=== PATIENT | male | born 1955 | race Caucasian/White ===

== ENCOUNTER 2020-03-09 12:17 | Observation (INO) | payer OTHER ==
[2020-03-09 13:17] LABS: Basophils % (A) 0 %; Eosinophils % (A) 0 %; HGB 15.2 gm/dL (13.0-17.5); Lymphocytes # (A) 0.4 k/uL (1.0-4.8); Lymphocytes % (A) 4 %; MCH 31.3 pg (25.0-35.0); MCHC 33.9 g/dL (31.0-37.0); MCV 92.3 fL (80.0-100.0); Monocytes # (A) 0.3 k/uL (0-1.0); Monocytes % (A) 3 %; Neutrophils # (A) 9.2 k/uL (1.3-7.7); Neutrophils % (A) 93 %; Platelet Count 276 k/uL (150-450); RBC 4.87 m/uL (4.30-5.90); RDW 13.2 % (11.5-15.5)
[2020-03-09 13:30] LABS: Albumin 4.6 g/dL (3.5-5.0); Magnesium 2.4 mg/dL (1.6-2.3); Potassium 4.1 mmol/L (3.5-5.1); Total Bilirubin 1.1 mg/dL (0.2-1.3); Total Protein 7.9 g/dL (6.3-8.2)
--- NOTE | 2020-03-09 13:31 | XR ---
EXAMINATION TYPE: XR chest 2V DATE OF EXAM: 03/09/2020 COMPARISON: NONE HISTORY: Shortness of breath TECHNIQUE: Frontal and lateral views of the chest are obtained. FINDINGS: Scattered senescent parenchymal changes noted. Hyperinflation compatible with COPD. No evidence for infiltrate. No evidence for atelectasis. Heart size is stable. Mediastinal structures are stable and grossly unremarkable. No evidence for hilar prominence. Degenerative changes dorsal spine. IMPRESSION: 1. No evidence for acute pulmonary disease.
--- NOTE | 2020-03-09 13:35 | ED ---
Chest Pain HPI - General Chief Complaint: Chest Pain Stated Complaint: Chest pain Time Seen by Provider: 03/09/20 12:17 Source: patient, EMS, RN notes reviewed Mode of arrival: EMS Limitations: no limitations - History of Present Illness Initial Comments: This is a 64-year-old male with a known history of PVCs who is brought in by EMS due to difficulty breathing and chest pain. He had chest pain over the left side of his chest with one to his axilla and also to his midsternal area he states initially was somewhat sharp and pulsating. He was given aspirin as well as nitroglycerin by paramedics and this did help the discomfort. He currently has minimal if any discomfort initially was 5-710. He is of a history of asthma and states he thought initially it was his asthma acting up due to the weather changes. MD Complaint: chest pain - Related Data Home Medications Medication Instructions Recorded Confirmed ALPRAZolam [Xanax] 0.25 mg PO DAILY PRN 03/09/20 03/09/20 Albuterol Sulfate [Ventolin HFA] 2 puff INHALATION RT-Q6H PRN 03/09/20 03/09/20 Cholecalciferol [Vitamin D3 (25 5,000 unit PO DAILY 03/09/20 03/09/20 Mcg = 1000 Iu)] Flecainide Acetate 50 mg PO Q12HR 03/09/20 03/09/20 Fluticasone Propionate [Flonase 1 spray EA NOSTRIL DAILY 03/09/20 03/09/20 Allergy Relief] HYDROcodone/APAP 10-325MG [[place] 1 tab PO TID PRN 03/09/20 03/09/20 10-325] Metoprolol Tartrate [Lopressor] 25 mg PO BID 03/09/20 03/09/20 Mometasone/Formoterol [Dulera 200 2 puff PO RT-DAILY 03/09/20 03/09/20 Mcg-5 Mcg Inhaler] Nabumetone 500 mg PO BID 03/09/20 03/09/20 Omeprazole [PriLOSEC] 20 mg PO DAILY 03/09/20 03/09/20 Pseudoephedrine [Sudafed] 60 mg PO DAILY 03/09/20 03/09/20 Simvastatin [Zocor] 40 mg PO HS 03/09/20 03/09/20 methylPREDNISolone [Medrol Dose See Taper PO DIRECTED 03/09/20 03/09/20 Pack] Allergies Allergy/AdvReac Type Severity Reaction Status Date / Time amoxicillin [From Augmentin] Allergy Unknown Verified 03/09/20 13:28 cephalexin [From Keflex] Allergy Unknown Verified 03/09/20 13:28 clavulanic acid Allergy Unknown Verified 03/09/20 13:28 [From Augmentin] levofloxacin [From Levaquin] Allergy Unknown Verified 03/09/20 13:28 ofloxacin [From Floxin] Allergy Unknown Verified 03/09/20 13:28 Review of Systems ROS Statement: Those systems with pertinent positive or pertinent negative responses have been documented in the HPI. ROS Other: All systems not noted in ROS Statement are negative. EKG Findings - EKG Results: EKG: interpreted by KRISTINA POSEY, sinus rhythm, normal axis, normal QRS, normal ST/T, no acute changes (Ventricular rate 89. Interval 188 QRS duration 92 QT since QTC 358/[address]-T wave changes) Past Medical History Past Medical History: Cancer, GERD/Reflux, Hyperlipidemia Additional Past Medical History / Comment(s): barretts esophagus History of Any Multi-Drug Resistant Organisms: None Reported Past Surgical History: Joint Replacement Past Psychological History: No Psychological Hx Reported Smoking Status: Never smoker Past Alcohol Use History: None Reported Past Drug Use History: None Reported General Exam - General Exam Comments Initial Comments: This is a well-developed well-nourished awake alert oriented times 3 male Limitations: no limitations General appearance: alert, in no apparent distress Head exam: Present: atraumatic, normocephalic, normal inspection Eye exam: Present: normal appearance, PERRL, EOMI. Absent: scleral icterus, conjunctival injection, periorbital swelling ENT exam: Present: normal exam, mucous membranes moist Neck exam: Present: normal inspection. Absent: tenderness, meningismus, lymphadenopathy Respiratory exam: Present: normal lung sounds bilaterally. Absent: respiratory distress, wheezes, rales, rhonchi, stridor, chest wall tenderness Cardiovascular Exam: Present: regular rate, normal rhythm, normal heart sounds. Absent: systolic murmur, diastolic murmur, rubs, gallop, clicks GI/Abdominal exam: Present: soft, normal bowel sounds. Absent: distended, tenderness, guarding, rebound, rigid Extremities exam: Present: normal inspection, full ROM, normal capillary refill. Absent: tenderness, pedal edema, joint swelling, calf tenderness Back exam: Present: normal inspection Neurological exam: Present: alert, oriented X3, CN II-XII intact Psychiatric exam: Present: normal affect, normal mood Skin exam: Present: warm, dry, intact, normal color. Absent: rash Course Vital Signs 03/09/20 03/09/20 03/09/20 12:21 12:28 12:30 Temperature 98.3 F Pulse Rate 87 87 93 Respiratory 18 Rate Blood Pressure 136/88 136/88 O2 Sat by Pulse 97 98 97 Oximetry 03/09/20 03/09/20 03/09/20 14:00 14:30 15:00 Temperature Pulse Rate 80 84 84 Respiratory 18 18 18 Rate Blood Pressure 127/86 134/71 128/83 O2 Sat by Pulse 97 97 97 Oximetry Chest Pain MDM - MDM Imaging reviewed no acute findings. I did discuss findings with the patient as well as with Dr. Mas patient will be admitted for evaluation of chest pain Critical Care Time Critical Care Time: Yes Total Critical Care Time: 31 Critical Care Time: This is an initial presentation with history physical labs x-rays discussed with paramedics. Review of findings with the patient discussed with the admitting physician admission orders and documentation of the above Disposition Clinical Impression: Unstable angina pectoris, Chest pain Disposition: ADMITTED IP TO THIS HOSP Condition: Fair Referrals: Vishnu Fernandez DO [Primary Care Provider] - 1-2 days
[2020-03-09 13:53] LABS: D-Dimer 0.32 mg/L FEU (<0.60)
[2020-03-09 13:56] LABS: Partial Thromboplastin Time 21.2 sec (22.0-30.0)
[2020-03-09] MEDS ORDERED: HEPARIN SODIUM,PORCINE 5,000 UNIT/ML 1 ML VIAL IV ONE (16:40)
[2020-03-09] MEDS ORDERED: NITROGLYCERIN SL TABS 0.4 MG TAB SUBLINGUAL PRN (16:40)
[2020-03-09] MEDS ORDERED: ALBUTEROL NEBULIZED 2.5 MG/3 ML INHALATION PRN (16:42)
[2020-03-09] MEDS ORDERED: HYDROcodone/APAP 10-325MG 1 EACH TAB PO PRN (16:42)
[2020-03-09] MEDS ORDERED: ALPRAZolam 0.25 MG TAB PO PRN (16:42)
[2020-03-09] MEDS ORDERED: HEPARIN SOD,PORK IN 0.45% NACL 25,000 UNIT in 0.45% NACL 1 250ML.BAG IV SCH (16:45)
[2020-03-09] MEDS ORDERED: NALOXONE 0.4 MG/ML 1 ML VIAL IV PRN (17:23)
[2020-03-09] MEDS: NITROGLYCERIN OINT 1 INCH/GM PACKET TOPICAL SCH (18:15)
--- NOTE | 2020-03-09 18:41 | P.HPIM ---
History of Present Illness H&P Date: 03/09/20 Chief Complaint: Chest Pain 64 year old man with history of PVCs on flecainide and metoprolol, Asthma, HTN/HLD presented with chest pain for 3 days. Patient describes the pain as a tightness in the center of the chest with occasional radiation to the shoulder and across the left chest. He says that exertion makes it worse. He denies relation to position or PO intake. He denies history of smoking, CVA, [place], angina, orthopnea, LE swelling, dyspnea, diaphoresis, chills, fevers, abdominal pain, n/v/c/d, dysuria, dyschezia, numbness/weakness of extremities. Review of Systems All Systems reviewed and pertinent positives and negatives noted in HPI, all other symptoms are negative Past Medical History Past Medical History: Cancer, GERD/Reflux, Hyperlipidemia Additional Past Medical History / Comment(s): barretts esophagus History of Any Multi-Drug Resistant Organisms: None Reported Past Surgical History: Joint Replacement Past Psychological History: No Psychological Hx Reported Smoking Status: Never smoker Past Alcohol Use History: None Reported Past Drug Use History: None Reported Medications and Allergies Home Medications Medication Instructions Recorded Confirmed Type ALPRAZolam [Xanax] 0.25 mg PO DAILY PRN 03/09/20 03/09/20 History Albuterol Sulfate [Ventolin HFA] 2 puff INHALATION RT-Q6H PRN 03/09/20 03/09/20 History Cholecalciferol [Vitamin D3 (25 5,000 unit PO DAILY 03/09/20 03/09/20 History Mcg = 1000 Iu)] Flecainide Acetate 50 mg PO Q12HR 03/09/20 03/09/20 History Fluticasone Propionate [Flonase 1 spray EA NOSTRIL DAILY 03/09/20 03/09/20 History Allergy Relief] HYDROcodone/APAP 10-325MG [[place] 1 tab PO TID PRN 03/09/20 03/09/20 History 10-325] Metoprolol Tartrate [Lopressor] 25 mg PO BID 03/09/20 03/09/20 History Mometasone/Formoterol [Dulera 200 2 puff PO RT-DAILY 03/09/20 03/09/20 History Mcg-5 Mcg Inhaler] Nabumetone 500 mg PO BID 03/09/20 03/09/20 History Omeprazole [PriLOSEC] 20 mg PO DAILY 03/09/20 03/09/20 History Pseudoephedrine [Sudafed] 60 mg PO DAILY 03/09/20 03/09/20 History Simvastatin [Zocor] 40 mg PO HS 03/09/20 03/09/20 History methylPREDNISolone [Medrol Dose See Taper PO DIRECTED 03/09/20 03/09/20 History Pack] Allergies Allergy/AdvReac Type Severity Reaction Status Date / Time amoxicillin [From Augmentin] Allergy Unknown Verified 03/09/20 13:28 cephalexin [From Keflex] Allergy Unknown Verified 03/09/20 13:28 clavulanic acid Allergy Unknown Verified 03/09/20 13:28 [From Augmentin] levofloxacin [From Levaquin] Allergy Unknown Verified 03/09/20 13:28 ofloxacin [From Floxin] Allergy Unknown Verified 03/09/20 13:28 Physical Exam Osteopathic Statement: *. No significant issues noted on an osteopathic structural exam other than those noted in the History and Physical/Consult. Vitals: Vital Signs Temp Pulse Resp BP Pulse Ox 03/09/20 18:00 98.0 F 86 18 161/81 97 03/09/20 15:00 84 18 128/83 97 03/09/20 14:30 84 18 134/71 97 03/09/20 14:00 80 18 127/86 97 03/09/20 12:30 93 136/88 97 03/09/20 12:28 87 98 03/09/20 12:21 98.3 F 87 18 136/88 97 Intake and Output 03/09/20 03/09/20 03/09/20 06:59 14:59 22:59 Other: Weight 77.111 kg Gen: awake, alert HEENT: normocephalic, atraumatic, good hearing acuity, moist mucous membranes Resp: CTAB, good air exchange, no accessory muscle use, no wheezes, crackles, rhonchi CVS: good distal perfusion x 4, RRR, no murmurs, clicks, gallops GI: soft, NTTP, [place] : no SPT, no CVAT, flowers catheter not present MSK: no pitting edema, no clubbing Neuro: non-focal, no sensory deficits, appropriate tone Psych: cooperative, euthymic mood Results CBC & Chem 7: 03/09/20 13:05 03/09/20 13:05 Labs: Abnormal Lab Results - Last 24 Hours (Table) 03/09/20 03/09/20 03/09/20 Range/Units 13:05 13:05 13:05 Neutrophils # 9.2 H (1.3-7.7) k/uL Lymphocytes # 0.4 L (1.0-4.8) k/uL APTT 21.2 L (22.0-30.0) sec BUN 24 H (9-20) mg/dL Glucose 136 H (74-99) mg/dL Magnesium 2.4 H (1.6-2.3) mg/dL Assessment and Plan Assessment: 1. Chest pain 2. History of PVCs 3. Asthma 4. ALLERGIC rhinitis 5. Hypertension, essential 6. Hyperlipidemia 64-year-old man with a medical history of PVCs on flecainide and metoprolol, asthma, ALLERGIC rhinitis on pseudoephedrine, hypertension/hyperlipidemia presented with chest pain for 3 days which did not improve with Medrol Dosepak and inhalers, and has typical nature as it is worse with exertion and improved with nitroglycerin, prompting admission for ACS rule out. Plan: - admit to observation with telemetry - ASA loaded, continue ASA 81mg daily - Home statin increased from 20mg to 80mg - Continue home metoprolol and flecainide - patient started on heparin gtt by ER, will continue - trend troponins - EKG/nitro PRN for chest pain - echo pending - cardiology consult pending - hold home pseudoephedrine, discontinue as outpatient Full Code
[2020-03-09 18:43] VITALS: RESP 16
[2020-03-09] MEDS ORDERED: ATORVASTATIN 20 MG TAB PO SCH (21:00)
[2020-03-09] MEDS: METOPROLOL TARTRATE 25 MG TAB PO SCH (21:44)
[2020-03-09] MEDS: FLECAINIDE 50 MG TAB PO SCH (21:44)
[2020-03-10] MEDS: NITROGLYCERIN OINT 1 INCH/GM PACKET TOPICAL SCH ×2 (02:14→06:39)
[2020-03-10] MEDS ORDERED: PANTOPRAZOLE 40 MG TABLET PO SCH (07:30)
[2020-03-10] MEDS ORDERED: SYMBICORT 160-4.5 MCG INHALER INHALATION SCH (08:00)
[2020-03-10 08:20] LABS: Basophils % (A) 1 %; Eosinophils % (A) 0 %; HCT 40.2 % (39.0-53.0); HGB 13.5 gm/dL (13.0-17.5); Lymphocytes # (A) 1.2 k/uL (1.0-4.8); Lymphocytes % (A) 17 %; MCH 30.9 pg (25.0-35.0); MCHC 33.5 g/dL (31.0-37.0); MCV 92.4 fL (80.0-100.0); Mean Platelet Volume 6.9; Monocytes # (A) 0.6 k/uL (0-1.0); Monocytes % (A) 8 %; Neutrophils # (A) 5.2 k/uL (1.3-7.7); Neutrophils % (A) 73 %; Platelet Count 243 k/uL (150-450); RBC 4.36 m/uL (4.30-5.90); RDW 13.4 % (11.5-15.5); WBC 7.2 k/uL (3.8-10.6)
[2020-03-10] MEDS: METOPROLOL TARTRATE 25 MG TAB PO SCH (08:52)
[2020-03-10] MEDS: FLECAINIDE 50 MG TAB PO SCH (08:52)
[2020-03-10] MEDS ORDERED: MELOXICAM 7.5 MG TAB PO SCH (09:00)
[2020-03-10] MEDS ORDERED: CHOLECALCIFEROL 1,000 UNIT TAB PO SCH (09:00)
[2020-03-10] MEDS ORDERED: FLUTICASONE 50MCG/SPRAY NASAL 16GM EA NOSTRIL SCH (09:00)
[2020-03-10] MEDS ORDERED: ASPIRIN 325 MG TAB PO SCH (09:00)
[2020-03-10] MEDS ORDERED: PSEUDOEPHEDRINE 30 MG TAB PO SCH (09:00)
[2020-03-10 09:18] LABS: African American GFR (CKD) >90 (>60 ml/min/1.73 sqM); Anion Gap 6 mmol/L; Blood Urea Nitrogen 22 mg/dL (9-20); Calcium 8.9 mg/dL (8.4-10.2); Carbon Dioxide 26 mmol/L (22-30); Chloride 108 mmol/L (98-107); Cholesterol 205 mg/dL (<200); Glucose 101 mg/dL (74-99); HDL Cholesterol 60 mg/dL (40-60); LDL Cholesterol,Calculated 124 mg/dL (0-99); Magnesium 2.1 mg/dL (1.6-2.3); Non-African American GFR(CKD) 79 (>60 ml/min/1.73 sqM); Potassium 4.1 mmol/L (3.5-5.1); Sodium 140 mmol/L (137-145); Triglycerides 107 mg/dL (<150)
--- NOTE | 2020-03-10 09:38 | P.DS ---
Providers Date of admission: 03/09/20 16:40 Attending physician: Luana Mas DO Consults: 03/09/20 16:40 Consult Physician Urgent Consulting Provider: Elijah Marrero Consult Reason/Comments: Chest pain Do you want consulting provider notified?: Yes Primary care physician: Vishnu Fernandez DO Hospital Course: HPI: 64 year old man with history of PVCs on flecainide and metoprolol, Asthma, HTN/HLD presented with chest pain for 3 days. Patient describes the pain as a tightness in the center of the chest with occasional radiation to the shoulder and across the left chest. He says that exertion makes it worse. He denies relation to position or PO intake. He denies history of smoking, CVA, [place], angina, orthopnea, LE swelling, dyspnea, diaphoresis, chills, fevers, abdominal pain, n/v/c/d, dysuria, dyschezia, numbness/weakness of extremities. Hospital course and treatment pt was admitted with chest pain , cardiac enzymes were negative , ddimer negative . Chest pain resolved . He remained hypodermically stable He was evaluated by cardiology . He had a recent stress test at [facility] ,negative report . He will get a 2 D ECHO , if results are unremarkable and once cleared by cardiology he will be dced home . 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 Diagnosis Chest pain m unspecified etiology History of PVCs Patient Condition at Discharge: Fair Plan - Discharge Summary Discharge Rx Participant: No New Discharge Prescriptions: Continue Albuterol Sulfate [Ventolin HFA] 2 puff INHALATION RT-Q6H PRN PRN Reason: Shortness Of Breath methylPREDNISolone [Medrol Dose Pack] See Taper PO DIRECTED Mometasone/Formoterol [Dulera 200 Mcg-5 Mcg Inhaler] 2 puff PO RT-DAILY Fluticasone Propionate [Flonase Allergy Relief] 1 spray EA NOSTRIL DAILY Simvastatin [Zocor] 40 mg PO HS Pseudoephedrine [Sudafed] 60 mg PO DAILY Nabumetone 500 mg PO BID ALPRAZolam [Xanax] 0.25 mg PO DAILY PRN PRN Reason: Anxiety Omeprazole [PriLOSEC] 20 mg PO DAILY Metoprolol Tartrate [Lopressor] 25 mg PO BID HYDROcodone/APAP 10-325MG [[place] 10-325] 1 tab PO TID PRN PRN Reason: Pain Flecainide Acetate 50 mg PO Q12HR Cholecalciferol [Vitamin D3 (25 Mcg = 1000 Iu)] 5,000 unit PO DAILY Discharge Medication List ALPRAZolam [Xanax] 0.25 mg PO DAILY PRN 03/09/20 [History] Albuterol Sulfate [Ventolin HFA] 2 puff INHALATION RT-Q6H PRN 03/09/20 [History] Cholecalciferol [Vitamin D3 (25 Mcg = 1000 Iu)] 5,000 unit PO DAILY 03/09/20 [History] Flecainide Acetate 50 mg PO Q12HR 03/09/20 [History] Fluticasone Propionate [Flonase Allergy Relief] 1 spray EA NOSTRIL DAILY 03/09/20 [History] HYDROcodone/APAP 10-325MG [[place] 10-325] 1 tab PO TID PRN 03/09/20 [History] Metoprolol Tartrate [Lopressor] 25 mg PO BID 03/09/20 [History] Mometasone/Formoterol [Dulera 200 Mcg-5 Mcg Inhaler] 2 puff PO RT-DAILY 03/09/20 [History] Nabumetone 500 mg PO BID 03/09/20 [History] Omeprazole [PriLOSEC] 20 mg PO DAILY 03/09/20 [History] Pseudoephedrine [Sudafed] 60 mg PO DAILY 03/09/20 [History] Simvastatin [Zocor] 40 mg PO HS 03/09/20 [History] methylPREDNISolone [Medrol Dose Pack] See Taper PO DIRECTED 03/09/20 [History] Follow up Appointment(s)/Referral(s): Vishnu Fernandez DO [Primary Care Provider] - 1-2 days Discharge Disposition: HOME SELF-CARE
[2020-03-10 10:17] VITALS: BP 142/75; PULSE 68; TEMP 98.2
--- NOTE | 2020-03-10 10:37 | CONS ---
CONSULTATION Mr. Lopez is a 64-year-old male with a history of hyperlipidemia, history of ventricular ectopic activity who is followed by family services assistant at [facility] who presented with symptoms of dizziness, dyspnea and vague chest discomfort. 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 When he stood up, he felt dizzy, deaf and presyncopal. He also felt dyspneic and subsequently had some discomfort in the left side of the chest. He took his inhaler with some improvement in his breathing, but he did not feel too well when he got home and because of that came into the emergency room. At the time of my evaluation, he is feeling well. The discomfort was on the left side of the chest, at times respirophasic. He had similar symptoms in the past with change of the weather. He has underwent a stress test at [facility] a few months ago and according to him that was unremarkable. He is active physically without any difficulty. He denies any exertional chest discomfort or significant dyspnea on exertion unless he has any exacerbation of his asthma. He has no history of PND, orthopnea, or peripheral edema. He has a history of ventricular ectopic activity, maintained on flecainide, apparently has underwent prior trials with different antiarrhythmic, but has done reasonably well with the flecainide. He has no history of CHF or malignant arrhythmia. His coronary risk factors are remarkable for hyperlipidemia. He is a nonsmoker, nondiabetic. MEDICATION: At home included flecainide 50 mg twice a day, metoprolol tartrate 25 mg twice a day, simvastatin 40 mg daily, albuterol, Dulera, Flonase. REVIEW OF SYSTEMS: RESPIRATORY SYSTEM: He has history of bronchial asthma. No recent cough. He has occasional wheezing. GI SYSTEM: No recent GI bleeding. No peptic ulcer disease. SYSTEM: No dysuria or hematuria. NERVOUS SYSTEM: No stroke or seizure. PHYSICAL EXAMINATION: GENERAL: A 64-year-old male, alert, oriented, in no apparent distress. VITAL SIGNS: Blood pressure 113/60 with a heart rate in 90s. HEAD: Normocephalic. Eyes sclerae anicteric. NECK: Good carotid upstroke. No bruit noted. No jugular venous distention. LUNGS: Clear to auscultation. HEART: Regular rate and rhythm. S1, S2. No S3. No S4. No rub. ABDOMEN: Soft, nontender, positive bowel sounds, no organomegaly. EXTREMITIES: No edema. Intact pulses. LAB DATA: Revealed troponin less than 0.012, 0.013 and 0.017. BUN and creatinine 24 and 1.1, potassium 4.1, hemoglobin is 13.5. EKG revealed a sinus mechanism, normal axis and intervals. No ST wave changes. Chest x-ray shows no acute infiltrate. IMPRESSION: 1. Symptoms of dizziness, most likely orthostatic changes. 2. History of ventricular ectopic activity, stable. 3. History of hypertension. 4. Hyperlipidemia. 5. Chest discomfort. Has atypical features for ischemic heart disease. No evidence of acute coronary syndrome. RECOMMENDATION: I have recommend to stop the aspirin. I will obtain an echocardiogram with Doppler. Will try to obtain the results of the stress test that was obtained recently at [facility]. There is no evidence of inducible ischemia. I would expect he should be able to be discharged home today and followed as an outpatient. MMODL / IJN: [id number] /
[2020-03-11] MEDS ORDERED: ASPIRIN 81 MG PO SCH (09:00)
== END 2020-03-10 12:14 | disposition home or self-care (01) ==
LOC: EC 12:17 → 1SOBS 16:40
PROVIDERS: ADMIT Internal Medicine; ATTEND Internal Medicine
DX: R07.89 Other chest pain (principal); R06.4 Hyperventilation; I49.3 Ventricular premature depolarization; R42 Dizziness and giddiness; R06.00 Dyspnea, unspecified; R55 Syncope and collapse; H91.90 Unspecified hearing loss, unspecified ear; K22.70 Barrett's esophagus without dysplasia; E78.5 Hyperlipidemia, unspecified; K21.9 Gastro-esophageal reflux disease without esophagitis; I10 Essential (primary) hypertension; F41.9 Anxiety disorder, unspecified; J45.909 Unspecified asthma, uncomplicated; Z79.899 Other long term (current) drug therapy; Z79.51 Long term (current) use of inhaled steroids; Z79.1 Long term (current) use of non-steroidal anti-inflammatories (NSAID); Z79.891 Long term (current) use of opiate analgesic; Z88.1 Allergy status to other antibiotic agents; Z88.0 Allergy status to penicillin; Z85.9 Personal history of malignant neoplasm, unspecified
CPT/HCPCS: 96366 ×2; 96376; 96365; 99291; 36415; 93005; 85379; 83880; 80061; 80053; 80048; 82550; 83735 ×2; 84484; 85025 ×2; 85610; 85730 ×2; 71046; G0378 ×2; J1644 ×2

== ENCOUNTER 2021-06-07 22:43 | Observation (INO) | payer OTHER ==
[2021-06-08] MEDS ORDERED: SODIUM CHLORIDE 0.9% 1,000 ML IV STA (00:07)
--- NOTE | 2021-06-08 00:10 | ED ---
General Adult HPI - General Chief complaint: Chest Pain Stated complaint: Chest Pain Time Seen by Provider: 06/07/21 23:28 Source: patient, family, EMS, RN notes reviewed Mode of arrival: EMS Limitations: no limitations - History of Present Illness Initial comments: 66-year-old male presents to the emergency department for evaluation of left- sided chest pain that has been intermittent over the past 2 weeks. Patient states this evening in addition to the chest discomfort, he also had elevated blood pressure reading of 180/90. Patient states he called EMS at that time and was given aspirin and nitro in route. States his chest pain resolved during transport. Patient does report a previous history of similar episodes. States he was hospitalized at [place] in February for the same thing. Denies any aggravating, fever, chills, dizziness, diaphoresis, shortness of breath, difficulty breathing, abdominal pain, back pain, nausea, vomiting, diarrhea, or dysuria. - Related Data Home Medications Medication Instructions Recorded Confirmed ALPRAZolam [Xanax] 0.25 mg PO DAILY PRN 03/09/20 03/09/20 Albuterol Sulfate [Ventolin HFA] 2 puff INHALATION RT-Q6H PRN 03/09/20 03/09/20 Cholecalciferol [Vitamin D3 (25 5,000 unit PO DAILY 03/09/20 03/09/20 Mcg = 1000 Iu)] Flecainide Acetate 50 mg PO Q12HR 03/09/20 03/09/20 Fluticasone Propionate [Flonase 1 spray EA NOSTRIL DAILY 03/09/20 03/09/20 Allergy Relief] HYDROcodone/APAP 10-325MG [[place] 1 tab PO TID PRN 03/09/20 03/09/20 10-325] Metoprolol Tartrate [Lopressor] 25 mg PO BID 03/09/20 03/09/20 Mometasone/Formoterol [Dulera 200 2 puff PO RT-DAILY 03/09/20 03/09/20 Mcg-5 Mcg Inhaler] Nabumetone 500 mg PO BID 03/09/20 03/09/20 Omeprazole [PriLOSEC] 20 mg PO DAILY 03/09/20 03/09/20 Pseudoephedrine [Sudafed] 60 mg PO DAILY 03/09/20 03/09/20 Simvastatin [Zocor] 40 mg PO HS 03/09/20 03/09/20 methylPREDNISolone [Medrol Dose See Taper PO DIRECTED 03/09/20 03/09/20 Pack] Allergies Allergy/AdvReac Type Severity Reaction Status Date / Time amoxicillin [From Augmentin] Allergy Unknown Verified 06/07/21 23:00 cephalexin [From Keflex] Allergy Unknown Verified 06/07/21 23:00 clavulanic acid Allergy Unknown Verified 06/07/21 23:00 [From Augmentin] levofloxacin [From Levaquin] Allergy Unknown Verified 06/07/21 23:00 ofloxacin [From Floxin] Allergy Unknown Verified 06/07/21 23:00 Review of Systems ROS Statement: Those systems with pertinent positive or pertinent negative responses have been documented in the HPI. ROS Other: All systems not noted in ROS Statement are negative. Past Medical History Past Medical History: Cancer, GERD/Reflux, Hyperlipidemia Additional Past Medical History / Comment(s): barretts esophagus History of Any Multi-Drug Resistant Organisms: None Reported Past Surgical History: Joint Replacement Additional Past Surgical History / Comment(s): total L knee Past Anesthesia/Blood Transfusion Reactions: Postoperative Nausea & Vomiting (PONV) Past Psychological History: No Psychological Hx Reported Smoking Status: Never smoker Past Alcohol Use History: None Reported Past Drug Use History: None Reported General Exam Limitations: no limitations (Well-developed, well-nourished male in no acute distress. Initial temperature 97.9, pulse 64, respirations 22, blood pressure 138/75, pulse ox 97% on room air.) General appearance: alert, in no apparent distress ENT exam: Present: normal exam, normal oropharynx, mucous membranes moist Neck exam: Present: normal inspection, full ROM. Absent: tenderness, meningismus, lymphadenopathy Respiratory exam: Present: normal lung sounds bilaterally. Absent: respiratory distress, wheezes, rales, rhonchi, stridor, chest wall tenderness Cardiovascular Exam: Present: regular rate, normal rhythm, normal heart sounds. Absent: systolic murmur, diastolic murmur, rubs, gallop, clicks GI/Abdominal exam: Present: soft, normal bowel sounds. Absent: distended, tenderness, guarding, rebound, rigid Extremities exam: Present: normal inspection, full ROM, normal capillary refill. Absent: tenderness, pedal edema, joint swelling, calf tenderness Neurological exam: Present: alert, oriented X3, CN II-XII intact Psychiatric exam: Present: normal affect, normal mood Skin exam: Present: warm, dry, intact, normal color. Absent: rash Course Vital Signs 06/07/21 06/08/21 06/08/21 22:56 01:00 02:00 Temperature 97.9 F Pulse Rate 64 62 66 Respiratory 22 22 22 Rate Blood Pressure 138/75 124/70 125/74 O2 Sat by Pulse 97 98 97 Oximetry 06/08/21 05:00 Temperature 98.0 F Pulse Rate 57 L Respiratory 16 Rate Blood Pressure 115/68 O2 Sat by Pulse 97 Oximetry - Reevaluation(s) Reevaluation #1: 06/08/21 01:45 Patient continues to rest comfortably and is pain-free. Vital signs are stable. Patient and spouse updated on plan of care. Medical Decision Making - Medical Decision Making This is a 66-year-old male with a past medical history of chest pain, asthma, and hypertension who presents to the emergency department for evaluation of chest pain and pressure. Upon arrival, patient is resting comfortably and in no acute distress. He was given 4 baby aspirin and 1 sublingual nitro via EMS in route which resolved his pain. Pain was not precipitated by any exertional activity and has occurred intermittently for the past 2 weeks. According to patient this is his third experience with this same complaint in the past 15 months. Physical exam findings are unremarkable. Chest x-ray is negative. EKG does show normal sinus rhythm with a first-degree block. Laboratory studies are unremarkable; Troponin is negative. Given patient's age, past medical history, improvement with nitroglycerin, and HeartScore indicating moderate risk, I recommended patient be admitted to the hospital for further evaluation and treatment. Patient and spouse were agreeable with this plan. I spoke with Dr. Jara who agrees to accept this admission. This patient's care was discussed with my attending, Dr. Johnson. - Lab Data Result diagrams: 06/08/21 00:13 06/08/21 00:13 Lab Results 06/08/21 06/08/21 06/08/21 Range/Units 00:13 00:13 00:13 WBC 7.3 (3.8-10.6) k/uL RBC 4.57 (4.30-5.90) m/uL Hgb 13.9 (13.0-17.5) gm/dL Hct 42.3 (39.0-53.0) % MCV 92.6 (80.0-100.0) fL MCH 30.5 (25.0-35.0) pg MCHC 32.9 (31.0-37.0) g/dL RDW 13.4 (11.5-15.5) % Plt Count 292 (150-450) k/uL MPV 7.3 Neutrophils % 69 % Lymphocytes % 17 % Monocytes % 9 % Eosinophils % 2 % Basophils % 1 % Neutrophils # 5.1 (1.3-7.7) k/uL Lymphocytes # 1.3 (1.0-4.8) k/uL Monocytes # 0.7 (0-1.0) k/uL Eosinophils # 0.2 (0-0.7) k/uL Basophils # 0.1 (0-0.2) k/uL PT 10.7 (9.0-12.0) sec INR 1.0 (<1.2) APTT 21.5 L (22.0-30.0) sec Sodium 135 L (137-145) mmol/L Potassium 4.1 (3.5-5.1) mmol/L Chloride 103 (98-107) mmol/L Carbon Dioxide 25 (22-30) mmol/L Anion Gap 7 mmol/L BUN 32 H (9-20) mg/dL Creatinine 1.18 (0.66-1.25) mg/dL Est GFR (CKD-EPI)AfAm 73 (>60 ml/min/1.73 sqM) Est GFR (CKD-EPI)NonAf 64 (>60 ml/min/1.73 sqM) Glucose 92 (74-99) mg/dL Calcium 8.7 (8.4-10.2) mg/dL Magnesium 2.3 (1.6-2.3) mg/dL Total Bilirubin 0.9 (0.2-1.3) mg/dL AST 18 (17-59) U/L ALT 14 (4-49) U/L Alkaline Phosphatase 62 (38-126) U/L Troponin I (0.000-0.034) ng/mL Total Protein 6.4 (6.3-8.2) g/dL Albumin 3.7 (3.5-5.0) g/dL 06/08/21 Range/Units 00:13 WBC (3.8-10.6) k/uL RBC (4.30-5.90) m/uL Hgb (13.0-17.5) gm/dL Hct (39.0-53.0) % MCV (80.0-100.0) fL MCH (25.0-35.0) pg MCHC (31.0-37.0) g/dL RDW (11.5-15.5) % Plt Count (150-450) k/uL MPV Neutrophils % % Lymphocytes % % Monocytes % % Eosinophils % % Basophils % % Neutrophils # (1.3-7.7) k/uL Lymphocytes # (1.0-4.8) k/uL Monocytes # (0-1.0) k/uL Eosinophils # (0-0.7) k/uL Basophils # (0-0.2) k/uL PT (9.0-12.0) sec INR (<1.2) APTT (22.0-30.0) sec Sodium (137-145) mmol/L Potassium (3.5-5.1) mmol/L Chloride (98-107) mmol/L Carbon Dioxide (22-30) mmol/L Anion Gap mmol/L BUN (9-20) mg/dL Creatinine (0.66-1.25) mg/dL Est GFR (CKD-EPI)AfAm (>60 ml/min/1.73 sqM) Est GFR (CKD-EPI)NonAf (>60 ml/min/1.73 sqM) Glucose (74-99) mg/dL Calcium (8.4-10.2) mg/dL Magnesium (1.6-2.3) mg/dL Total Bilirubin (0.2-1.3) mg/dL AST (17-59) U/L ALT (4-49) U/L Alkaline Phosphatase (38-126) U/L Troponin I <0.012 (0.000-0.034) ng/mL Total Protein (6.3-8.2) g/dL Albumin (3.5-5.0) g/dL - EKG Data EKG shows normal: sinus rhythm Rate: normal EKG Comments: EKG was obtained at 2250 showing sinus rhythm with first-degree AV block and borderline left axis deviation. Ventricular rate 66, VT intervals 216, QRS duration 101, QT/QTc 433/447. Interpretation abnormal ECG. - Radiology Data Radiology results: report reviewed, image reviewed Two-view chest x-ray was obtained. Report was reviewed in its entirety. Impression per Dr. Jj is no active cardiopulmonary disease. Normal heart. No change. Disposition Clinical Impression: Chest pain Disposition: ADMITTED IP TO THIS [facility] Condition: Serious Decision Date: 06/08/21 Decision Time: 02:42
[2021-06-08 00:46] LABS: Basophils # (A) 0.1 k/uL (0-0.2); Basophils % (A) 1 %; Eosinophils # (A) 0.2 k/uL (0-0.7); Eosinophils % (A) 2 %; HCT 42.3 % (39.0-53.0); HGB 13.9 gm/dL (13.0-17.5); Lymphocytes # (A) 1.3 k/uL (1.0-4.8); Lymphocytes % (A) 17 %; MCH 30.5 pg (25.0-35.0); MCHC 32.9 g/dL (31.0-37.0); MCV 92.6 fL (80.0-100.0); Mean Platelet Volume 7.3; Monocytes # (A) 0.7 k/uL (0-1.0); Monocytes % (A) 9 %; Neutrophils # (A) 5.1 k/uL (1.3-7.7); Neutrophils % (A) 69 %; Platelet Count 292 k/uL (150-450); RBC 4.57 m/uL (4.30-5.90); RDW 13.4 % (11.5-15.5); WBC 7.3 k/uL (3.8-10.6)
--- NOTE | 2021-06-08 00:46 | XR ---
EXAMINATION TYPE: XR chest 2V DATE OF EXAM: 06/08/2021 COMPARISON: 03/09/2020 HISTORY: Chest pain TECHNIQUE: 2 view FINDINGS: Heart and mediastinum are normal. Lungs are clear. Diaphragm is normal. There are chest fritz ds. Costophrenic angles are clear. IMPRESSION: No active cardiopulmonary disease. Normal heart. No change.
[2021-06-08 00:57] LABS: Albumin 3.7 g/dL (3.5-5.0); Calcium 8.7 mg/dL (8.4-10.2); Magnesium 2.3 mg/dL (1.6-2.3); Potassium 4.1 mmol/L (3.5-5.1); Total Bilirubin 0.9 mg/dL (0.2-1.3); Total Protein 6.4 g/dL (6.3-8.2)
[2021-06-08 01:09] LABS: Partial Thromboplastin Time 21.5 sec (22.0-30.0); Prothrombin Time 10.7 sec (9.0-12.0)
[2021-06-08] MEDS ORDERED: NALOXONE 0.4 MG/ML 1 ML VIAL IV PRN (02:42)
[2021-06-08] MEDS ORDERED: ACETAMINOPHEN TAB 325 MG TAB PO PRN (02:42)
[2021-06-08] MEDS ORDERED: MORPHINE SULFATE 4 MG/ML SYRINGE IV PRN (02:42)
[2021-06-08] MEDS ORDERED: ONDANSETRON 4 MG/2 ML VIAL IVP PRN (02:42)
[2021-06-08] MEDS ORDERED: NITROGLYCERIN SL TABS 0.4 MG TAB SUBLINGUAL PRN (02:46)
[2021-06-08 05:06] VITALS: BP 115/68; PULSE 57; RESP 16; TEMP 98
[2021-06-08] MEDS ORDERED: SPIRONOLACTONE 25 MG TAB PO SCH (09:15)
[2021-06-08] MEDS ORDERED: VERAPAMIL SR 180 MG TABLET.ER PO SCH (09:15)
--- NOTE | 2021-06-08 09:28 | P.CRDCN ---
History of Present Illness History of present illness: HISTORY OF PRESENTING ILLNESS This is a pleasant 66-year-old male past medical history significant for hypertension, dyslipidemia, Barretts esophagus,neck/mouth/tongue cancer s/p surgery, ventricular ectopic activity. He follows with Dr. Anjel Adair at [facility]. We have been asked to see in consultation for chest pain. Patient states he's been having on and off chest discomfort over the past 15 months that has made him present to the emergency department 3 times. Over the past 2 weeks she's been having symptoms of left-sided chest pain, some shortness of breath, lightheadedness and dizziness. Also states he can "feel his heart beat". He checked his BP and noticed it being elevated at 180s/90s. His chest discomfort is Nonradiating, nonexertional. His pain is constant and describes it as sharp. No specific aggravating or alleviating factors. He states he has had similar symptoms in the past with the change in weather and last week he thought it was his asthma, he went to his provider and was put on a prednisone taper. He felt the symptoms didn't improve and presented to the emergency department for further evaluation. He denies any nausea, vomiting, diaphoresis, syncope or near-syncope. He denies any symptoms of orthopnea PND. He normally sleeps with 2 pillows. . He recently presented to [facility] in February 2021 underwent initial testing with blood work, EKG, chest x-ray and according to him that was unremarkable. He also presents to [facility] in April 2020 with similar chest pain and he underwent a Lexiscan stress test which was negative for reversible ischemia. He states he recently followed up with Dr. Adair in April 2021 and he was scheduled for a calcium score and CT angiogram of the chest tomorrow on 06/09/2021 DIAGNOSTICS EKG reveals sinus rhythm, heart rate 66, first-degree AV block, no significant ST-T wave abnormalities. Telemetry tracings indicate sinus mechanism heart rate in the 60s70s Chest xray no acute cardio pulmonary process Laboratory reviewed, CBC unremarkable, troponin negative 3, sodium 135, potassium 4.1, BUN 32, serum creatinine 1.1, COVID-19 negative Current cardiac medications include verapamil 180 mg daily, spironolactone 25 mg daily, simvastatin 40 mg nightly REVIEW OF SYSTEMS At the time of my exam: CONSTITUTIONAL: Denies fever or chills. CARDIOVASCULAR: Denies chest pain, shortness of breath, orthopnea, PND or palpitations. RESPIRATORY: Denies cough. GASTROINTESTINAL: Denies abdominal pain, diarrhea, constipation, nausea or vomiting. MUSCULOSKELETAL: Denies myalgias. NEUROLOGIC: Denies numbness, tingling, headacbe or weakness. ENDOCRINE: Denies fatigue, weight change, polydipsia or polyurina. GENITOURINARY: Denies burning, hematuria or urgency with micturation. HEMATOLOGIC: Denies history of anemia or bleeding. PHYSICAL EXAMINATION Blood pressure 115/68, heart rate 66, afebrile, saturations 97% on room air CONSTITUTIONAL: No apparent distress. HEENT: Head is normocephalic. Pupils are equal, round. Sclerae anicteric. Mucous membranes of the mouth are moist. No JVD. No carotid bruit. CHEST EXAMINATION: Lungs are clear to auscultation. Expiratory wheezing notice in left lower lobe. No chest wall tenderness is noted on palpation or with deep breathing. HEART EXAMINATION: Regular rate and rhythm. S1, S2 heard. No murmurs, gallops or rub. ABDOMEN: Soft, nontender. Positive bowel sounds. EXTREMITIES: 2+ peripheral pulses, no lower extremity edema and no calf tenderness. NEUROLOGIC EXAMINATION: Patient is awake, alert and oriented x3. ASSESSMENT Chest discomfort, atypical, acute coronary syndrome has been ruled out. History of hypertension History of ventricular ectopic activity, stable Hyperlipidemia History of Brannon's esophagus PLAN Patient's chest pain is atypical acute coronary syndrome has ruled out. No evidence of ischemia on EKG, cardiac enzymes are negative. Patient also had a normal MPI stress test April 2020 at [facility]. We will obtain 2D echocardiogram and doppler study to assess cardiac structure and function. Continue home cardiac medications If echocardiogram shows normal LV systolic function, okay to discharge from a cardiology perspective and follow-up outpatient with Dr. Adair and recommended patient go to his scheduled Chest CT angiogram tomorrow 06/09/2021 Nurse practitioner note has been reviewed by physician. Signing provider agrees with the documented findings, assessment, and plan of care. Past Medical History Past Medical History: Cancer, GERD/Reflux, Hyperlipidemia Additional Past Medical History / Comment(s): barretts esophagus History of Any Multi-Drug Resistant Organisms: None Reported Past Surgical History: Joint Replacement Additional Past Surgical History / Comment(s): total L knee Past Anesthesia/Blood Transfusion Reactions: Postoperative Nausea & Vomiting (PONV) Past Psychological History: No Psychological Hx Reported Smoking Status: Never smoker Past Alcohol Use History: None Reported Past Drug Use History: None Reported Medications and Allergies Home Medications Medication Instructions Recorded Confirmed Type ALPRAZolam [Xanax] 0.25 mg PO DAILY PRN 03/09/20 06/08/21 History Mometasone/Formoterol [Dulera 200 2 puff PO RT-BID 03/09/20 06/08/21 History Mcg-5 Mcg Inhaler] Nabumetone 500 mg PO BID 03/09/20 06/08/21 History Omeprazole [PriLOSEC] 20 mg PO DAILY 03/09/20 06/08/21 History Pseudoephedrine [Sudafed] 60 mg PO Q6H PRN 03/09/20 06/08/21 History Simvastatin [Zocor] 40 mg PO HS 03/09/20 06/08/21 History Cholecalciferol [Vitamin D3 (25 25 mcg PO DAILY 06/08/21 06/08/21 History Mcg = 1000 Iu)] Cyanocobalamin (Vitamin B-12) 1,000 mcg PO DAILY 06/08/21 06/08/21 History [Vitamin B-12] Flecainide Acetate 150 mg PO BID 06/08/21 06/08/21 History HYDROcodone/APAP 5-325MG [[place] 1 tab PO TID PRN 06/08/21 06/08/21 History 5-325] Spironolactone 25 mg PO DAILY 06/08/21 06/08/21 History Verapamil HCl [Verapamil ER] 180 mg PO DAILY 06/08/21 06/08/21 History methocarbamoL [Methocarbamol] 750 mg PO HS PRN 06/08/21 06/08/21 History Allergies Allergy/AdvReac Type Severity Reaction Status Date / Time amoxicillin [From Augmentin] Allergy Unknown Verified 06/08/21 06:45 cephalexin [From Keflex] Allergy Unknown Verified 06/08/21 06:45 clavulanic acid Allergy Unknown Verified 06/08/21 06:45 [From Augmentin] levofloxacin [From Levaquin] Allergy Unknown Verified 06/08/21 06:45 ofloxacin [From Floxin] Allergy Unknown Verified 06/08/21 06:45 Physical Exam Vitals: Vital Signs Temp Pulse Resp BP Pulse Ox 06/08/21 05:00 98.0 F 57 L 16 115/68 97 06/08/21 02:00 66 22 125/74 97 06/08/21 01:00 62 22 124/70 98 06/07/21 22:56 97.9 F 64 22 138/75 97 Intake and Output 06/07/21 06/08/21 06/08/21 22:59 06:59 14:59 Other: Weight 79.379 kg Results 06/08/21 00:13 06/08/21 00:13 Cardiac Enzymes 06/08/21 06/08/21 06/08/21 Range/Units 00:13 00:13 03:35 AST 18 (17-59) U/L Troponin I <0.012 <0.012 (0.000-0.034) ng/mL 06/08/21 Range/Units 05:33 AST (17-59) U/L Troponin I <0.012 (0.000-0.034) ng/mL Coagulation 06/08/21 Range/Units 00:13 PT 10.7 (9.0-12.0) sec APTT 21.5 L (22.0-30.0) sec CBC 06/08/21 Range/Units 00:13 WBC 7.3 (3.8-10.6) k/uL RBC 4.57 (4.30-5.90) m/uL Hgb 13.9 (13.0-17.5) gm/dL Hct 42.3 (39.0-53.0) % Plt Count 292 (150-450) k/uL Comprehensive Metabolic Panel 06/08/21 Range/Units 00:13 Sodium 135 L (137-145) mmol/L Potassium 4.1 (3.5-5.1) mmol/L Chloride 103 (98-107) mmol/L Carbon Dioxide 25 (22-30) mmol/L BUN 32 H (9-20) mg/dL Creatinine 1.18 (0.66-1.25) mg/dL Glucose 92 (74-99) mg/dL Calcium 8.7 (8.4-10.2) mg/dL AST 18 (17-59) U/L ALT 14 (4-49) U/L Alkaline Phosphatase 62 (38-126) U/L Total Protein 6.4 (6.3-8.2) g/dL Albumin 3.7 (3.5-5.0) g/dL Current Medications Generic Name Dose Route Start Last Admin Trade Name Freq PRN Reason Stop Dose Admin Acetaminophen 650 mg 06/08/21 02:42 Acetaminophen Tab 325 Mg Tab PO Q6HR PRN Mild Pain or Fever > 100.5 Atorvastatin Calcium 20 mg 06/08/21 21:00 Atorvastatin 20 Mg Tab PO HS PAOLA Sodium Chloride 1,000 mls @ 100 mls/hr 06/08/21 00:07 06/08/21 00:22 Saline 0.9% IV 06/08/21 10:06 100 mls/hr .Q10H STA Administration Morphine Sulfate 4 mg 06/08/21 02:42 Morphine Sulfate 4 Mg/Ml Syringe IV Q4HR PRN Severe Pain Naloxone HCl 0.2 mg 06/08/21 02:42 Naloxone 0.4 Mg/Ml 1 Ml Vial IV Q2M PRN Opioid Reversal Nitroglycerin 0.4 mg 06/08/21 02:46 Nitroglycerin Sl Tabs 0.4 Mg Tab SUBLINGUAL Q5M PRN Chest Pain Ondansetron HCl 4 mg 06/08/21 02:42 Ondansetron 4 Mg/2 Ml Vial IVP Q8HR PRN Nausea And Vomiting Spironolactone 25 mg 06/08/21 09:15 Spironolactone 25 Mg Tab PO DAILY PAOLA Verapamil HCl 180 mg 06/08/21 09:15 Verapamil Sr 180 Mg Tablet.Er PO DAILY PAOLA Intake and Output 06/07/21 06/08/21 06/08/21 22:59 06:59 14:59 Other: Weight 79.379 kg 06/08/21 00:13 06/08/21 00:13
[2021-06-08] MEDS ORDERED: SODIUM CHLORIDE 0.9% 1,000 ML IV ONE (11:53)
--- NOTE | 2021-06-08 11:56 | P.HPIM ---
History of Present Illness Patient was a 66-year-old male came in with complaints of her chest pain has been going on for 2 weeks nonradiating 4/10 in severity without any significant shortness of breath but does have lightheadedness and dizziness. Patient does take verapamil at home also takes pseudoephedrine. Patient blood pressure is low normal. Patient checked his BP which was high with systolics in 180s and diastolics in 90s. Patient chest pain is not related to food nonpleuritic in nature. Patient was evaluated by cardiology they ordered an echocardiogram, patient was monitored overnight with EKGs and troponins no significant abnormalities and EKG troponins are negative. Patient had history of for neck issues in the past patient does have history of Brannon's esophagus time cancer with surgery in the past. Patient's chest x-ray did not show any significant abnormality. REVIEW OF SYSTEMS: CONSTITUTIONAL: No fever, no malaise, no fatigue. HEENT: No recent visual problems or hearing problems. Denied any sore throat. CARDIOVASCULAR: No orthopnea, PND, no palpitations, no syncope. PULMONARY: No shortness of breath, no cough, no hemoptysis. GASTROINTESTINAL: No diarrhea, no nausea, no vomiting, no abdominal pain. NEUROLOGICAL: No headaches, no weakness, no numbness. HEMATOLOGICAL: Denies any bleeding or petechiae. GENITOURINARY: Denies any burning micturition, frequency, or urgency. MUSCULOSKELETAL/RHEUMATOLOGICAL: Denies any joint pain, swelling, or any muscle pain. ENDOCRINE: Denies any polyuria or polydipsia. The rest of the 14-point review of systems is negative. PHYSICAL EXAMINATION: GENERAL: The patient is alert and oriented x3, not in any acute distress. Well developed, well nourished. HEENT: Pupils are round and equally reacting to light. EOMI. No scleral icterus. No conjunctival pallor. Normocephalic, atraumatic. No pharyngeal erythema. No thyromegaly. CARDIOVASCULAR: S1 and S2 present. No murmurs, rubs, or gallops. PULMONARY: Chest is clear to auscultation, no wheezing or crackles. ABDOMEN: Soft, nontender, nondistended, normoactive bowel sounds. No palpable organomegaly. MUSCULOSKELETAL: No joint swelling or deformity. EXTREMITIES: No cyanosis, clubbing, or pedal edema. NEUROLOGICAL: Gross neurological examination did not reveal any focal deficits. SKIN: No rashes. Assessment and plan -Chest pain: Probably musculoskeletal noncardiac was evaluated cardiology cleared by cardiology after the echocardiogram reports if that's normal patient will be discharged today is no evidence of pulmonary embolism or pneumonia pneumonia at this time. -Lightheadedness mild dehydration along with verapamil contributing to his lightheadedness but patient's blood pressure is low normal. Patient heart rate is in 50s. Probably verapamil dose can be cut down I also recommended him to stop taking pseudoephedrine which can increase the heart rate. This patient will be left to PCP and his cleaning validation consultant -Mild dehydration and mild acute renal failure secondary to dehydration and prerenal ischemia patient will be given a liter bolus before his discharge -Gastric esophageal reflux disease next and-hyperlipidemia -History of Brannon's esophagus Patient will be discharged today after the echo results and after IV fluid bolus. Past Medical History Past Medical History: Cancer, GERD/Reflux, Hyperlipidemia Additional Past Medical History / Comment(s): barretts esophagus History of Any Multi-Drug Resistant Organisms: None Reported Past Surgical History: Joint Replacement Additional Past Surgical History / Comment(s): total L knee Past Anesthesia/Blood Transfusion Reactions: Postoperative Nausea & Vomiting (PONV) Past Psychological History: No Psychological Hx Reported Smoking Status: Never smoker Past Alcohol Use History: None Reported Past Drug Use History: None Reported Medications and Allergies Home Medications Medication Instructions Recorded Confirmed Type ALPRAZolam [Xanax] 0.25 mg PO DAILY PRN 03/09/20 06/08/21 History Mometasone/Formoterol [Dulera 200 2 puff PO RT-BID 03/09/20 06/08/21 History Mcg-5 Mcg Inhaler] Nabumetone 500 mg PO BID 03/09/20 06/08/21 History Omeprazole [PriLOSEC] 20 mg PO DAILY 03/09/20 06/08/21 History Pseudoephedrine [Sudafed] 60 mg PO Q6H PRN 03/09/20 06/08/21 History Simvastatin [Zocor] 40 mg PO HS 03/09/20 06/08/21 History Cholecalciferol [Vitamin D3 (25 25 mcg PO DAILY 06/08/21 06/08/21 History Mcg = 1000 Iu)] Cyanocobalamin (Vitamin B-12) 1,000 mcg PO DAILY 06/08/21 06/08/21 History [Vitamin B-12] Flecainide Acetate 150 mg PO BID 06/08/21 06/08/21 History HYDROcodone/APAP 5-325MG [[place] 1 tab PO TID PRN 06/08/21 06/08/21 History 5-325] Spironolactone 25 mg PO DAILY 06/08/21 06/08/21 History Verapamil HCl [Verapamil ER] 180 mg PO DAILY 06/08/21 06/08/21 History methocarbamoL [Methocarbamol] 750 mg PO HS PRN 06/08/21 06/08/21 History Allergies Allergy/AdvReac Type Severity Reaction Status Date / Time amoxicillin [From Augmentin] Allergy Unknown Verified 06/08/21 06:45 cephalexin [From Keflex] Allergy Unknown Verified 06/08/21 06:45 clavulanic acid Allergy Unknown Verified 06/08/21 06:45 [From Augmentin] levofloxacin [From Levaquin] Allergy Unknown Verified 06/08/21 06:45 ofloxacin [From Floxin] Allergy Unknown Verified 06/08/21 06:45 Physical Exam Vitals: Vital Signs Temp Pulse Resp BP Pulse Ox 06/08/21 05:00 98.0 F 57 L 16 115/68 97 06/08/21 02:00 66 22 125/74 97 06/08/21 01:00 62 22 124/70 98 06/07/21 22:56 97.9 F 64 22 138/75 97 Intake and Output 06/07/21 06/08/21 06/08/21 22:59 06:59 14:59 Other: Weight 79.379 kg Results CBC & Chem 7: 06/08/21 00:13 06/08/21 00:13 Labs: Abnormal Lab Results - Last 24 Hours (Table) 06/08/21 06/08/21 Range/Units 00:13 00:13 APTT 21.5 L (22.0-30.0) sec Sodium 135 L (137-145) mmol/L BUN 32 H (9-20) mg/dL
--- NOTE | 2021-06-08 11:58 | P.DS ---
Providers Date of admission: 06/08/21 02:29 Attending physician: Zuleima Jara Consults: 06/08/21 02:43 Consult Physician Routine Consulting Provider: [facility] Consult Reason/Comments: chest pain Do you want consulting provider notified?: Yes, Notify in am Primary care physician: Vishnu Fernandez DO Hospital Course: Refer to my HPI for further details Patient Condition at Discharge: Serious Plan - Discharge Summary New Discharge Prescriptions: No Action Mometasone/Formoterol [Dulera 200 Mcg-5 Mcg Inhaler] 2 puff PO RT-BID Simvastatin [Zocor] 40 mg PO HS Pseudoephedrine [Sudafed] 60 mg PO Q6H PRN PRN Reason: Congestion Nabumetone 500 mg PO BID ALPRAZolam [Xanax] 0.25 mg PO DAILY PRN PRN Reason: Anxiety Omeprazole [PriLOSEC] 20 mg PO DAILY Verapamil HCl [Verapamil ER] 180 mg PO DAILY Cholecalciferol [Vitamin D3 (25 Mcg = 1000 Iu)] 25 mcg PO DAILY methocarbamoL [Methocarbamol] 750 mg PO HS PRN PRN Reason: Muscle Pain Spironolactone 25 mg PO DAILY Flecainide Acetate 150 mg PO BID Cyanocobalamin (Vitamin B-12) [Vitamin B-12] 1,000 mcg PO DAILY HYDROcodone/APAP 5-325MG [[place]on 5-325] 1 tab PO TID PRN PRN Reason: Pain Discharge Medication List ALPRAZolam [Xanax] 0.25 mg PO DAILY PRN 03/09/20 [History] Mometasone/Formoterol [Dulera 200 Mcg-5 Mcg Inhaler] 2 puff PO RT-BID 03/09/20 [History] Nabumetone 500 mg PO BID 03/09/20 [History] Omeprazole [PriLOSEC] 20 mg PO DAILY 03/09/20 [History] Pseudoephedrine [Sudafed] 60 mg PO Q6H PRN 03/09/20 [History] Simvastatin [Zocor] 40 mg PO HS 03/09/20 [History] Cholecalciferol [Vitamin D3 (25 Mcg = 1000 Iu)] 25 mcg PO DAILY 06/08/21 [History] Cyanocobalamin (Vitamin B-12) [Vitamin B-12] 1,000 mcg PO DAILY 06/08/21 [History] Flecainide Acetate 150 mg PO BID 06/08/21 [History] HYDROcodone/APAP 5-325MG [[place] 5-325] 1 tab PO TID PRN 06/08/21 [History] Spironolactone 25 mg PO DAILY 06/08/21 [History] Verapamil HCl [Verapamil ER] 180 mg PO DAILY 06/08/21 [History] methocarbamoL [Methocarbamol] 750 mg PO HS PRN 06/08/21 [History] Follow up Appointment(s)/Referral(s): Vishnu Fernandez DO [Primary Care Provider] - 3 Days Activity/Diet/Wound Care/Special Instructions: Please go to your scheduled Chest CT Angio as scheduled on 06/09/[address] Anjel Adair Discharge Disposition: HOME SELF-CARE
--- NOTE | 2021-06-08 12:00 | ECHOF ---
Referral Reason:LV function MEASUREMENTS -------- HEIGHT: 175.3 cm WEIGHT: 79.4 kg BP: 115/68 RVIDd: 3.2 cm (< 3.3) IVSd: 1.2 cm (0.6 - 1.1) LVIDd: 4.9 cm (3.9 - 5.3) LVPWd: 1.3 cm (0.6 - 1.1) IVSs: 1.8 cm LVIDs: 3.5 cm LVPWs: 1.6 cm LA Diam: 3.4 cm (2.7 - 3.8) LAESV Index (A-L): 18.36 ml/m Ao Diam: 3.4 cm (2.0 - 3.7) AV Cusp: 2.2 cm (1.5 - 2.6) MV EXCURSION: 17.701 mm (> 18.000) MV EF SLOPE: 75 mm/s (70 - 150) EPSS: 0.9 cm MV E Silvestre: 0.64 m/s MV DecT: 280 ms MV A Silvestre: 0.70 m/s MV E/A Ratio: 0.91 RAP: 5.00 mmHg RVSP: 21.00 mmHg FINDINGS -------- Sinus rhythm. This was a technically good study. The left ventricular size is normal. There is mild concentric left ventricular hypertrophy. Overa ll left ventricular systolic function is normal with, an EF between 55 - 60 %. The diastolic fillin g pattern is normal for the age of the patient 13.26. The right ventricle is normal in size. Normal LA size by volume 22+/-6 ml/m2. The right atrium is normal in size. Interatrial and interventricular septum intact. The aortic valve is trileaflet, and appears structurally normal. No aortic stenosis or regurgitation. The mitral valve is normal. Mild mitral regurgitation is present. The tricuspid valve appears structurally normal. Mild tricuspid regurgitation present. Right vent ricular systolic pressure is normal at < 35 mmHg. Trace/mild (physiologic) pulmonic regurgitation. The aortic root size is normal. Normal inferior vena cava with normal inspiratory collapse consistent with estimated right atrial pre ssure of 5 mmHg. There is no pericardial effusion. CONCLUSIONS -------- 1. There is mild concentric left ventricular hypertrophy. 2. Overall left ventricular systolic function is normal with, an EF between 55 - 60 %. 3. The aortic valve is trileaflet, and appears structurally normal. No aortic stenosis or regurgitati on. 4. Mild mitral regurgitation is present. 5. Mild tricuspid regurgitation present. 6. Trace/mild (physiologic) pulmonic regurgitation. 7. There is no pericardial effusion. [employer]ER TENDER: Nevin Sandoval RDCS
[2021-06-08] MEDS ORDERED: ATORVASTATIN 20 MG TAB PO SCH (21:00)
== END 2021-06-08 12:50 | disposition home or self-care (01) ==
LOC: EC 22:43 → 1SOBS 06-08 02:29 → 6NMEDSUR 06-08 05:11 → 3SCARD 06-08 08:43
PROVIDERS: ADMIT Hospitalist; ATTEND Hospitalist
DX: R07.89 Other chest pain (principal); N17.9 Acute kidney failure, unspecified; E86.0 Dehydration; I44.0 Atrioventricular block, first degree; I49.3 Ventricular premature depolarization; E78.5 Hyperlipidemia, unspecified; K21.9 Gastro-esophageal reflux disease without esophagitis; I10 Essential (primary) hypertension; J45.909 Unspecified asthma, uncomplicated; F41.9 Anxiety disorder, unspecified; Z20.822 Contact with and (suspected) exposure to COVID-19; Z79.51 Long term (current) use of inhaled steroids; Z79.1 Long term (current) use of non-steroidal anti-inflammatories (NSAID); Z79.899 Other long term (current) drug therapy; Z88.0 Allergy status to penicillin; Z88.1 Allergy status to other antibiotic agents; Z88.8 Allergy status to other drugs, medicaments and biological substances; Z96.652 Presence of left artificial knee joint; Z85.810 Personal history of malignant neoplasm of tongue; Z87.19 Personal history of other diseases of the digestive system
CPT/HCPCS: 99285; 36415; 93005; 93306; 80053; 83735; 84484; 85025; 85610; 85730; 87635; 71046; G0378 ×3